=== PATIENT | male | born 1995 | race Caucasian/White ===

== ENCOUNTER 2024-06-04 15:57 | Emergency (ER) | payer OTHER ==
[~2024-06-04] VITALS: Ht 180.3 cm; Wt 125.5 kg
[2024-06-04 16:04] VITALS: TEMP 98.9
[2024-06-04 16:44] LABS: BASO % 0.3 % (0.0-1.0); EOS # 0.2 10^3/uL (0.0-0.5); EOS % 1.7 % (0.0-3.0); HEMATOCRIT 44.7 % (42.0-52.0); HEMOGLOBIN 15.1 g/dl (13.5-17.5); LYMPH # 2.3 10^3/uL (1.5-5.0); LYMPH % 16.9 % (24.0-44.0); MEAN CORPUSCULAR HGB CONC 33.8 g/dl (32.0-36.5); MONO # 1.1 10^3/uL (0.0-0.8); MONO % 8.2 % (2.0-8.0); NEUTROPHILS # 9.6 10^3/uL (1.5-8.5); NEUTROPHILS % 72.4 % (36.0-66.0); PLATELET COUNT, AUTOMATED 316 10^3/uL (150-450); WHITE BLOOD COUNT 13.3 10^3/uL (4.0-10.0)
[2024-06-04] MEDS: MORPHINE 4 MG/ML 1ML VIAL IV ONE ×2 (17:10→18:05)
[2024-06-04] MEDS: ONDANSETRON 4MG 2ML VIAL IV ONE (17:10)
[2024-06-04 17:11] LABS: ALBUMIN 4.2 G/DL (3.2-5.2); BILIRUBIN,DIRECT 0.2 MG/DL (<0.4); BILIRUBIN,TOTAL 0.5 MG/DL (0.3-1.2); TOTAL PROTEIN 8.1 G/DL (5.7-8.2)
[2024-06-04] MEDS ORDERED: ISOVUE-370 76% 100ML VIAL As Ordered ONE (18:38)
[2024-06-04] MEDS: fentaNYL 100 MCG/2 ML INJECTION IV ONE (18:50)
[2024-06-04] MEDS: diphenhydrAMINE 50MG/ML VIAL IV ONE (18:55)
[2024-06-04] MEDS: FAMOTIDINE 20MG/2ML VIAL IVP ONE (18:55)
[2024-06-04] MEDS: methylPREDNISolone 125MG 2ML VIAL IV ONE (18:55)
[2024-06-04 20:30] VITALS: BP 131/60; O2SAT 94
[2024-06-04] MEDS: OXYCODONE/APAP 5MG/325MG(HOME DOSE PACK) PO ONE (20:55)
[2024-06-04] MEDS ORDERED: ONDA-282 PO (20:56)
[2024-06-04] MEDS ORDERED: SUCR1SS PO (20:56)
[2024-06-04] MEDS ORDERED: PANT40TA29 PO (20:56)
== END 2024-06-04 21:10 | disposition home or self-care (01) ==
LOC: M ED 15:57
DX: K80.50 Calculus of bile duct without cholangitis or cholecystitis without obstruction (principal); L23.4 Allergic contact dermatitis due to dyes; Z88.0 Allergy status to penicillin; Z91.041 Radiographic dye allergy status
CPT/HCPCS: 74177; 76705; 80047; 80076; 83690; 85025; 96374; 96375; 96376; 99284; J1200; J2405; J2919; J3010; Q9967; S0028

== ENCOUNTER 2024-06-10 11:37 | Emergency (ER) | payer OTHER ==
[~2024-06-10] VITALS: Ht 180.3 cm; Wt 122.7 kg
[~2024-06-10 11:37] MED LIST: ONDA-282 PO; PANT40TA29 PO; SUCR1SS PO
[2024-06-10 11:43] VITALS: TEMP 97.9
[2024-06-10 12:52] LABS: BASO % 0.4 % (0.0-1.0); EOS # 0.2 10^3/uL (0.0-0.5); EOS % 2.2 % (0.0-3.0); HEMOGLOBIN 13.5 g/dl (13.5-17.5); LYMPH % 11.5 % (24.0-44.0); MEAN CORPUSCULAR HEMOGLOBIN 28.7 pg (27.0-33.0); MEAN CORPUSCULAR HGB CONC 32.9 g/dl (32.0-36.5); MEAN CORPUSCULAR VOLUME 87.2 fl (80.0-96.0); MONO # 0.6 10^3/uL (0.0-0.8); MONO % 6.1 % (2.0-8.0); NEUTROPHILS # 7.1 10^3/uL (1.5-8.5); PLATELET COUNT, AUTOMATED 317 10^3/uL (150-450)
[2024-06-10] MEDS: KETOROLAC 30 MG/ML 1ML VIAL IV ONE (13:18)
[2024-06-10] MEDS: PANTOPRAZOLE 40MG VIAL IV ONE (13:18)
[2024-06-10] MEDS: ONDANSETRON 4MG 2ML VIAL IV ONE (13:18)
[2024-06-10 13:24] LABS: LIPASE 34 U/L (12-53)
[2024-06-10 13:26] LABS: ALBUMIN 3.6 G/DL (3.2-5.2); ALKALINE PHOSPHATASE 122 U/L (40-129); ALT/SGPT 97 U/L (7.0-40); AST/SGOT 129 U/L (<34); BILIRUBIN,DIRECT 0.5 MG/DL (<0.4); BILIRUBIN,TOTAL 0.9 MG/DL (0.3-1.2); BLOOD UREA NITROGEN 14 MG/DL (9-23); CALCIUM LEVEL 9.3 MG/DL (8.5-10.1); CARBON DIOXIDE LEVEL 30 MMOL/L (20-31); CHLORIDE LEVEL 106 MMOL/L (98-107); CREATININE FOR GFR 0.91 MG/DL (0.70-1.30); GLOMERULAR FILTRATION RATE > 60.0 (>60); GLUCOSE, FASTING 111 MG/DL (60-100); SODIUM LEVEL 142 MMOL/L (136-145); TOTAL PROTEIN 7.3 G/DL (5.7-8.2)
[2024-06-10 14:30] VITALS: BP 125/61; O2SAT 95
[2024-06-10] MEDS ORDERED: OMEP40CA4 PO (14:37)
[2024-06-10] MEDS ORDERED: OXYC1TAB23 PO (14:37)
[2024-06-10] MEDS ORDERED: PANT40TA29 PO (14:42)
[2024-06-10] MEDS ORDERED: SUCR1SS PO (14:42)
[2024-06-10] MEDS ORDERED: PERCOCET PO (14:42)
[2024-06-10] MEDS ORDERED: ONDA-282 PO (14:42)
== END 2024-06-10 14:52 | disposition home or self-care (01) ==
LOC: M ED 11:37
DX: K80.66 Calculus of gallbladder and bile duct with acute and chronic cholecystitis without obstruction (principal); Z88.0 Allergy status to penicillin; Z91.041 Radiographic dye allergy status
CPT/HCPCS: 36415; 76705; 80047; 80048; 80076; 83690; 85025; 86850; 86900; 86901; 96374; 96375; 99284; J1885; J2405; J2470